=== PATIENT | male | born 1955 | race Hispanic/Latino ===

== ENCOUNTER 2018-02-20 01:53 | Inpatient (IN) | payer OTHER ==
[~2018-02-20] VITALS: Ht 160 cm; Wt 81.6 kg
[~2018-02-20 01:53] MED LIST: LEVOTHYROXINE25 MCG PO; TRIGLIDE160 M1
--- NOTE | 2018-02-20 11:36 | Patient Discharge Instructions ---
Discharge Instructions General Discharge Information You were seen/treated for: Cecal Polyp You had these procedures: Robotic Right Hemicolectomy Watch for these problems: Redness, swelling, or unusual drainage from incisions. Increased pain, nausea, vomiting, excessive diarrhea, or no bowel movements. Fever >101, chest pain, shortness of breath, or calf pain. Call Surgeon to remove: Jessica Do not soak the wound: Yes Daily wet to dry dressings: No No bath, but you may shower: Yes Diet Continue normal diet: Yes Recommended Diet: Low Residue, Regular Activity Full Activity/No Limits: No Activity Self Limited: Yes Pounds, do NOT lift more than: 10 (x 2 weeks) Activity Limited to: Weight bear as tolerated Acute Coronary Syndrome Inclusion Criteria At DC or during hospital stay patient has or had the following: ACS DIAGNOSIS No Discharge Core Measures Meds if any: Prescribed or Continued at Discharge Meds if any: NOT Prescribed or Continued at Discharge Congestive Heart Failure Inclusion Criteria At DC or during hospital stay patient has or had the following: CHF DIAGNOSIS No Discharge Core Measures Meds if any: Prescribed or Continued at Discharge Meds if any: NOT Prescribed or Continued at Discharge Cerebrovascular accident Inclusion Criteria At DC or during hospital stay patient has or had the following: CVA/TIA Diagnosis No Discharge Core Measures Meds if any: Prescribed or Continued at Discharge Meds if any: NOT Prescribed or Continued at Discharge Venous thromboembolism Inclusion Criteria VTE Diagnosis No VTE Type NONE VTE Confirmed by (Test) NONE Discharge Core Measures - Per Current guidelines, there needs to be overlap - treatment for the first 5 days of Warfarin therapy. - If discharged on Warfarin prior to 5 days of - overlap therapy, the patient will need to be - assessed for post discharge needs including - *Post discharge parental anticoagulation - *Warfarin and/or parental anticoagulation education - *Follow up date to check INR post discharge At least 5 days overlap therapy as Inpatient No Meds if any: Prescribed or Continued at Discharge Note: Overlap Therapy is Warfarin and Anticoagulant Meds if any: NOT Prescribed or Continued at Discharge
--- NOTE | 2018-02-20 11:37 | Admission Core Measures ---
Acute Coronary Syndrome (CM) ACS Core Measures Acute Coronary Syndrome Diagnosis No Congestive Heart Failure (NEW) CHF Core Measures Congestive Heart Failure Diagnosis No Cerebrovascular Accident CVA Core Measures CVA/TIA Diagnosis No Venous Thromboembolism VTE Core Shayla (View Protocol) VTE Risk Factors Surgery No Mechanical VTE Prophylaxis d/t N/A MechProphylax Ordered No VTE Pharm Prophylaxis d/t NA PharmProphylax ordered Problem List As ranked by this Provider includes Assessment & Plan 1. Polyp of cecum 2. S/P right hemicolectomy HOME MEDS Home Med List Levothyroxine Sodium 25 MCG TABLET 1 TAB PO DAILY replacement (Reported)
--- NOTE | 2018-02-20 11:38 | Operative Report ---
Operative/Inv Procedure Report Surgery Date: 02/20/18 Name of Procedure: Robotic right colectomy with intracorporeal anastomosis Pre-Operative Diagnosis: Adenoma of the cecum not amenable to endoscopic removal Post-Operative Diagnosis: Adenoma of the cecum not amenable to endoscopic removal Estimated Blood Loss: less than 50ml Surgeon/Lusterer: Chavo Fernandez Jr., DO Anesthesia: general endotracheal tube, block Monitors: Per routine Implants: None Drains: None Specimens: 1. Right colon 2. Additional distal margin Complications: None Condition: Good Operative Indication: This is a 62-year-old gentleman who during colonoscopy sent to have a polyp at the base of the cecum. This polyp was not amenable to colonoscopic removal. Biopsies demonstrated adenoma. Patient was referred for surgical consultation. As this was a premalignant polyp I recommended surgery. He underwent preoperative risk assessment and clearance and then was scheduled for surgery Operative/Procedure Note Note: On the night perforce procedure the patient did a bowel prep at home including oral laxatives and oral antibiotics. 3 hours before his scheduled operation the patient drinks 12 ounces of apple juice per our ERAS protocol. He presented to and in the holding area was premedicated with acetaminophen, Neurontin and Entereg. Patient was taken into the operating room where he received IV experience patient supine position on the operating room table. He underwent induction of general anesthesia and placement of endotracheal tube. A Fink catheter was placed. Next bilateral tap blocks performed by the anesthesia department. After this the patient's arms were tucked and the abdomen was prepped and draped in usual fashion. We gained access to the abdominal cavity using a Veress needle technique. The Veress needle was inserted in the midclavicular line subcostal on the left. Abdomen was insufflated 50 mmHg and then the robotic ports were placed. The ports were placed on the line drawn between the pubic symphysis and the midclavicular line on the left. #1,2 and 4 ports were 8 mm ports. #3 port was a 12 mm port. Laparoscopic expiration the abdominal cavity was performed. There was no obvious pathology the patient was placed in slight Trendelenburg left side down. Small bowel was swept away from the base of the right nasal colon. The omentum was swept over the transverse colon. In the robot was docked. The cecum was grasped and elevated this tented the mesentery next the ileocolic blood vessels as they crossed over the duodenum. Using electrocautery I scored the perineum along the inferior edge of the ileocolic blood vessels. Next I developed a window through this incision into the retroperitoneum and found the avascular space in the rectum perineum. I was able to identify the duodenum through this mesenteric window and I continued to dissect medial to lateral and then inferior to superior until all the lateral attachments of the right colon and the proximal transverse colon were taken down from the retroperitoneum. Next the ileocolic blood vessels were skeletonized and then divided with the robotic vessel sealing device. At this point I took down the white line of Toldt starting at the cecum and working antegrade until the entire right colon and proximal transverse colon were mobilized . I continued dividing the mesentery parallel to the ileocolic blood vessels till I reached the wall of the ileum. Once wall of the ileum was well exposed a robotic stapler was used to divide the bowel. I used a 45 mm white robotic stapler. Next I chose my proximal site of transection. I divided the bowel at about the level of the hepatic flexure with robotic blue 45 mm stapler. 2 firings were required. At this point when I was inspecting the transected colon I did not like the staple line. [place] was too tangential and lastly potentially ischemic to dog ear. So I resected this corner with another firing of the 45 mm blue HANNA stapler. Next this additional distal margin was robotically sutured to the specimen 2-0 Vicryl. The specimen was placed in the right upper quadrant above the liver. The 2 ends of the transected bowel were tacked together with 2-0 Vicryl suture in a [id number] fashion. Enterotomies were made about 6-8 cm from the transected edge of the bowel. These enterotomies were made on the antimesenteric portion of the bowel. Next a robotic HANNA stapler was used to create a common channel. One arm of the stapling device was placed on each limb of the bowel the stapler was closed and fired. I did a second stapling to make sure that the anastomosis was adequately wide. At this point I closed the common enterotomy in 2 layers. The inner layer was closed with a running 2-0 V LOC suture. The outer layer was done with interrupted 2-0 Vicryl sutures placed in a fashion. I inspected the staple line last time from the anterior aspect and it appeared intact. I inspected the posterior suture line which also appeared intact. at this point the specimen bowel was grasped with a locking grasper. The pneumoperitoneum was let down and a 4 cm Pfannenstiel incision was created. Wound protector was placed through this Pfannenstiel. The specimen was extracted through the Pfannenstiel. Specimen was later opened and the back table and the polyp was readily visible in the base of the cecum. At this point the wound protector was removed. The peritoneum at this incision was closed with a running 2-0 Vicryl suture. The fascia was closed transversely with a 0 PDS. Subcutaneous tissues were copiously irrigated here and closed with skin rashad. Immediately one last inspection for hemostasis with the laparoscope. I irrigated out the right gutter and there was some old blood but no evidence of active bleeding and I was satisfied with hemostasis. Ports removed under direct visualization of the laparoscope. All the lap endoscopic ports were closed with subcuticular 4-0 Monocryl and then skin glue. The abdomen was cleansed and dried. A island dressing was placed over the Pfannenstiel incision. The patient was ectopy in the operating room and taken recovery area in good condition and he tolerated the procedure well. At the end this operational needle sponges and Schmidts were accounted for
--- NOTE | 2018-02-20 11:48 | Surgical Discharge Summary ---
Visit Information Visit Dates Admission Date: 02/20/18 History of Present Illness Chief Complaint: Cecal Polyp Medical History Cardiovascular: hyperlipidemia Endocrine: hypothyroidism Other Medical Hx: Vitamin B12 and D Deficiency Isolation History: Standard Surgical History Pertinent Surgical History: colon resection Review of Systems: as per [facility] Hospital Course Course Attending Physician: Chavo Fernandez Jr., DO Primary Care Physician: Enzo Finney MD Hospital Course: This is a 62 yo male with a PMHx of hypothyroidism, hyperlipidemia, and Vitamin B12 and D deficiency who presented electively on 02/20/18 for Robotic Right Hemicolectomy. Patient tolerated the procedure well. Postoperative course was uncomplicated. Diet was advanced in a stepwise fashion as bowel function returned. He was on an ERAS protocol during his hospital stay. By time of discharge patient was ambulating, voiding, tolerating a regular low residue diet , on PO analgesia, and had full return of bowel function. Plan is for the patient to follow up with Dr. Fernandez within 2 weeks for staple removal and postoperative check. Full details of his hospital course, operative report and diagnostic studies can be found in his electronic chart. Complications: None Allergies: Coded Allergies: No Known Allergies (02/10/18) Significant Procedures: Robotic Right Hemicolectomy 02/20/18 Disposition Summary Disposition Principal Diagnosis: Cecal Polyp Additional Diagnosis: 1. Hypothyroidism 2. Hyperlipidemia 3. Vitamin B12 Deficiency 4. Vitamin D Deficiency Discharge Disposition: home or self care Discharge Instructions General Discharge Information Code Status: Full Code Patient's Diet: Regular Low Residue Patient's Activity: Increase as tolerated Follow-Up Instructions/Appts: Call the office for a follow up appointment following discharge from the hospital. Call sooner with any other problems, questions or concerns. Medications at Discharge Discharge Medications: Continue taking these medications: Fenofibrate Nanocrystallized (Triglide) 160 MG TABLET Levothyroxine Sodium (Levothyroxine Sodium) 25 MCG TABLET 1 Tablet ORAL DAILY Copies To: Chavo Fernandez Jr., DO
[2018-02-20 13:45] VITALS: BP 110/80
--- NOTE | 2018-02-20 16:24 | PN- Student ---
Orion Donahueh 02/20/18 1607: Subjective Subjective: POST OP CHECK mild diffuse abdominal pain 5/10, improves with pain medication. Burped once since surgery. No flatus or bowel movements. Straw colored urine in clifton. No nausea, no vomiting. has not been OOB. Has had juice to drink. No calf pain, no chest pain, no shortness of breath. Objective Objective: Vitals: Not recorded I's/O's I's: not recorded O's: 250 clifton Imaging: None Physical Exam: General: no acute distress, alert and oriented to time and place Pulm: clear to auscultation bilaterally cardio: s1,s2 RRR Abdomen: softly distended, positve bowel sounds. Difusely tender to palpation. Small surgical sites are intact. Large dressing is intact with sanguinous discharge. Extremities: calves soft and non tender bilaterally. 2+ dorsalis pedis and posterior tibialis pulses. Alps in place Results Results: Microbiology 02/20 1157 URINE ROUT: Urine Culture - COLB Assessment/Plan Assessment: 62 year old male POD0 S/P robotic right colectomy doing well with expected pain awaiting bowel function. Plan: Clear diet, advance to fulls tomorrow Gabapentin, acetaminophen, oxycodone, and morphine prn for pain Entereg for bowel recovery GI prophylaxis Zofran for nausea Alps and Heparin subQ for DVT prophylaxis OOB Remove clifton tomorrow AM Continue home meds discuss with preceptor Anitha Kebede 02/20/18 4497: Assessment/Plan Assessment: Agree with student assessment/poc. Dressing with moderate sangiunous drainage, appears old, drainage does not appear to be active at this time. Will continue to monitor. Vital signs: BP: 110/80, HR: 58, O2 sat: 95% room air, T: 98.2 Continue ERAS protocol, pt tolerating clear liquid diet with no nausea or emesis. Will likely advance to fulls in am. Ambulation and incentive spirometry encouraged.
[2018-02-20 18:00] VITALS: BP 130/80
[2018-02-20 22:02] VITALS: BP 140/80
[2018-02-21 06:59] VITALS: BP 122/74
--- NOTE | 2018-02-21 07:50 | PN- General Surgery ---
See Addendum Subjective Subjective: Patient reports postop pain which is well controlled. He reports pain with movement. He reports moving his bowels 4 times since surgery, which were loose in nature and states the last 3 were associated with blood and reports straining. He states he is tolerating clears without nausea, vomiting or bleching. He offers no other complaints. Objective Vital Signs and I&Os Vital Signs Date Time Temp Pulse Resp B/P B/P Pulse O2 O2 Flow FiO2 Mean Ox Delivery Rate 02/21 0659 98.5 58 18 122/74 98 Room Air 02/20 2202 97.7 79 20 140/80 97 02/20 1800 96.9 68 20 130/80 96 Room Air 02/20 1345 98.2 58 18 110/80 95 Room Air Intake & Output 02/21 1600 02/21 0800 02/21 0000 02/20 1600 02/20 0800 02/20 0000 Intake Total 400 400 Output Total 600 1400 500 Balance -600 -1000 -100 Intake, IV 300 Intake, Oral 100 400 Number 2 1 Bowel Movements Output, Urine 600 1400 500 Patient 180 lb Weight Physical Exam: Gen - nontoxic, appears uncomfortably in no acute distress Cardiac - S1S2 noted Lungs - CTAB Abd - softly distended, hypoactive bs, incisions with dermaflex in place, no signs of infection, suprapubic dressing c/d/i, appropriately tender to palpation , no rebound or guarding - clifton in place with clear urine Ext - alps in place, no edema or calf tenderness Current Medications: Current Medications Sig/Jeff Start time Last Medication Dose Route Stop Time Status Admin Acetaminophen 1,000 MG TID PRN 02/20 1430 AC PO Acetaminophen 1,000 MG TID 02/20 1400 DC PO Alvimopan 12 MG BID 02/20 2100 AC 02/21 PO 0759 Bupivacaine Liposome 266 MG .STK-MED ONE 02/20 1058 DC INF 02/20 1059 Diphenhydramine HCl 50 MG Q6P PRN 02/20 1200 AC IV Docusate Sodium 100 MG BID 02/20 2100 AC 02/21 PO 0758 Fenofibrate 145 MG DAILY 02/21 0900 AC 02/21 PO 0758 Fentanyl Citrate 100 MCG .STK-MED ONE 02/20 1133 DC IM 02/20 1134 Gabapentin 200 MG Q8 02/20 1400 AC 02/21 PO 0554 Heparin Sodium 5,000 UNIT Q8 02/20 1400 DC 02/21 (Porcine) SC 0553 Lactated Ringer's 1,000 ML Q13H 02/20 1200 DC 02/21 IV 0231 Levothyroxine Sodium 0.025 MG DAILY AC 02/21 0700 AC 02/21 PO 0553 Morphine Sulfate 2 MG Q3P PRN 02/20 1200 AC 02/20 IV 1435 Morphine Sulfate 4 MG Q3P PRN 02/20 1200 AC IV Non-Formulary 0 SEE ADMIN CRITERIA 02/20 1200 CAN Medication ANY Ondansetron HCl 4 MG Q6P PRN 02/20 1430 AC IV Ondansetron HCl 4 MG Q6P PRN 02/20 1200 DC IV Oxycodone HCl 5 MG Q4-6 PRN PRN 02/20 1200 AC PO Oxycodone HCl 10 MG Q4-6 PRN PRN 02/20 1200 AC 02/21 PO 0648 Pantoprazole Sodium 40 MG DAILY 02/21 0900 AC 02/21 IV 0759 Patient Medication 1 ED ONE ONE 02/21 1030 DC Teaching ED 02/21 1031 Polyethylene Glycol 17 GM DAILY 02/21 0900 AC 02/21 PO 0802 Simethicone 80 MG TID 02/20 1400 AC 02/21 PO 0759 Results Last 48 Hours of Labs: Laboratory Tests 02/21 0635 Chemistry Sodium (137 - 145 mmol/L) 138 Potassium (3.5 - 5.1 mmol/L) 4.0 Chloride (98 - 107 mmol/L) 105 Carbon Dioxide (22 - 30 mmol/L) 24 Anion Gap (5 - 16) 9 BUN (9 - 20 mg/dL) 12 Creatinine (0.7 - 1.2 mg/dL) 0.8 Estimated GFR (>60 ml/min) > 60 BUN/Creatinine Ratio (7 - 25 %) 15.0 Hematology CBC w Diff NO MAN DIFF REQ WBC (4.8 - 10.8 /CUMM) 15.1 H RBC (4.70 - 6.10 /CUMM) 4.83 Hgb (14.0 - 18.0 G/DL) 14.6 Hct (42 - 52 %) 43.5 MCV (80.0 - 94.0 FL) 90.1 MCH (27.0 - 31.0 PG) 30.1 MCHC (33.0 - 37.0 G/DL) 33.4 RDW (11.5 - 14.5 %) 13.8 Plt Count (130 - 400 /CUMM) 246 MPV (7.4 - 10.4 FL) 8.0 Gran % (42.2 - 75.2 %) 83.4 H Lymphocytes % (20.5 - 51.1 %) 9.7 L Monocytes % (1.7 - 9.3 %) 6.9 Eosinophils % (0 - 5 %) 0 Basophils % (0.0 - 2.0 %) 0 Absolute Granulocytes (1.4 - 6.5 /CUMM) 12.6 H Absolute Lymphocytes (1.2 - 3.4 /CUMM) 1.5 Absolute Monocytes (0.10 - 0.60 /CUMM) 1.0 H Absolute Eosinophils (0.0 - 0.7 /CUMM) 0 Absolute Basophils (0.0 - 0.2 /CUMM) 0 Assessment/Plan Assessment/Plan 62 M POD 1 s/p robotic right colectomy with intracorporeal anastomosis secondary to cecal adenoma with return of bowel function and hematochezia, likely postoperative from anastomosis Cont clears, d/c IV ERAS protocol Home meds on board Bowel regimen on board DVT ppx - alps, hold hsq Labs reviewed, recheck H&H this afternoon\ D/c clifton Encourage IS, ambulation D/w Dr. Waters Core Measures Venous Thromboembolism VTE Risk Factors Surgery No Mechanical VTE Prophylaxis d/t N/A MechProphylax Ordered No VTE Pharm Prophylaxis d/t NA PharmProphylax ordered
[2018-02-21 08:13] LABS: ABSOLUTE BASOPHIL COUNT 0 /CUMM (0.0-0.2); ABSOLUTE EOSINOPHIL COUNT 0 /CUMM (0.0-0.7); ABSOLUTE GRANULOCYTE CT 12.6 /CUMM (1.4-6.5); ABSOLUTE LYMPH COUNT 1.5 /CUMM (1.2-3.4); BASOPHIL % 0 % (0.0-2.0); EOSINOPHIL % 0 % (0-5); HEMATOCRIT 43.5 % (42-52); MEAN CORPUSCULAR HGB 30.1 PG (27.0-31.0); MEAN CORPUSCULAR HGB CONC 33.4 G/DL (33.0-37.0); MEAN CORPUSCULAR VOLUME 90.1 FL (80.0-94.0); PLATELET COUNT 246 /CUMM (130-400); RBC DISTRIBUTION WIDTH 13.8 % (11.5-14.5); RED BLOOD CELL CT 4.83 /CUMM (4.70-6.10); WHITE BLOOD CELL COUNT 15.1 /CUMM (4.8-10.8)
[2018-02-21 09:47] LABS: GRANULOCYTE % 83.4 % (42.2-75.2)
[2018-02-21 14:39] LABS: ABSOLUTE BASOPHIL COUNT 0 /CUMM (0.0-0.2); ABSOLUTE EOSINOPHIL COUNT 0 /CUMM (0.0-0.7); ABSOLUTE GRANULOCYTE CT 10.6 /CUMM (1.4-6.5); ABSOLUTE LYMPH COUNT 1.3 /CUMM (1.2-3.4); ABSOLUTE MONOCYTE COUNT 0.8 /CUMM (0.10-0.60); BASOPHIL % 0.2 % (0.0-2.0); EOSINOPHIL % 0 % (0-5); GRANULOCYTE % 83.2 % (42.2-75.2); HEMATOCRIT 40.6 % (42-52); MEAN CORPUSCULAR HGB 29.8 PG (27.0-31.0); MEAN CORPUSCULAR HGB CONC 33.5 G/DL (33.0-37.0); MEAN CORPUSCULAR VOLUME 88.8 FL (80.0-94.0); MEAN PLATELET VOLUME 7.2 FL (7.4-10.4); PLATELET COUNT 230 /CUMM (130-400); RBC DISTRIBUTION WIDTH 13.8 % (11.5-14.5); RED BLOOD CELL CT 4.57 /CUMM (4.70-6.10); WHITE BLOOD CELL COUNT 12.7 /CUMM (4.8-10.8)
[2018-02-21 14:50] VITALS: BP 132/88
--- NOTE | 2018-02-21 14:56 | Event Note ---
Event Note Event Note: Called by nurse due to reported "chest pain". The patient reports about 30 minutes of right sided chest discomfort, which seemed to resolve after morphine. He denies shortness of breath. No dizziness. No further episodes of bloody bms. vitals stable EKG - stable appearing right bundle branch block (compared to pre-op ekg) troponin pending follow up cbc pending discussed above with will obtain chest xray called for cardiology consult will f/u troponin
--- NOTE | 2018-02-21 15:55 | RADIOLOGY REPORT ---
EXAMINATION: XR CHEST CLINICAL INFORMATION: Right-sided chest pain. Shoulder discomfort. COMPARISON: None. TECHNIQUE: Portable frontal view of the chest was obtained. FINDINGS: The lungs are fairly well expanded. No focal consolidation, pleural effusion, pulmonary edema, or pneumothorax. No significant mediastinal widening. No acute osseous abnormalities. IMPRESSION: No acute pulmonary pathology demonstrated.
[2018-02-21 21:33] VITALS: BP 110/70
--- NOTE | 2018-02-21 21:52 | Cons- Cardiology ---
General Information and HPI Consulting Request Date of Consult: 02/21/18 Requested By: Chavo Fernandez Jr., DO History of Present Illness: Mr. Zarco is a 62 year old male with history of hyperlipidemia who underwent a colectomy for a colonic adenoma. This morning the patient noted a discomfort located around the right shoulder that is exacerbated by movement of his arm. There is no precordial chest pain and no shortness of breath. He also denies lightheadedness or palpitations. At baseline this is an active person without cardiac symptoms. Allergies/Medications Allergies: Coded Allergies: No Known Allergies (02/10/18) Home Med List: Fenofibrate Nanocrystallized (Triglide) 160 MG TABLET cholesterol (Reported) Levothyroxine Sodium 25 MCG TABLET 1 TAB PO DAILY replacement (Reported) Review of Systems Review of Systems: A review of systems was unremarkable. 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 Home Services at Home: None Smoking Status: Never Smoked Exam & Diagnostic Data Vital Signs and I&O Vital Signs Date Time Temp Pulse Resp B/P B/P Pulse O2 O2 Flow FiO2 Mean Ox Delivery Rate 02/213 98.6 74 18 110/70 95 02/21 1450 98.7 69 20 132/88 96 02/21 0659 98.5 58 18 122/74 98 Room Air 02/20 2202 97.7 79 20 140/80 97 Intake & Output 02/21 1600 02/21 0800 02/21 0000 02/20 1600 02/20 0800 02/20 0000 Intake Total 800 400 400 Output Total 5386 692 0986 500 Balance -750 -600 -1000 -100 Intake, IV 300 Intake, Oral 800 100 400 Number 2 1 Bowel Movements Output, Urine 8025 247 3820 500 Patient 180 lb Weight Physical Exam: General: WD/WN male in NAD; alert and oriented x 3 HEENT: NC/AT, PERRL, EOMI Neck: no JVD, no carotid bruit Heart: RRR w/o murmur Lungs: clear bilaterally Abdomen: soft, mildly tender, +ve bowel sounds Extremities: no edema Assessment/Plan Assessment/Plan * This patient has minimal risk factors for coronary artery disease and very atypical symptoms for myocardial ischemia. His ECG is unchange compared with the pre-operative study although it does show an rsr' pattern in V1 and V2 with slight interventricular conduction delay. There are no ischemic changes. It is reasonable and recommended to obtain an echocardiogram. He is otherwise doing well from a cardiac standpoint. I believe his discomfort is musculoskeletal. Consult Acknowledgment - Thank you for your consult request.
[2018-02-22 05:48] VITALS: BP 122/68
--- NOTE | 2018-02-22 07:54 | PN- General Surgery ---
See Addendum Subjective Subjective: No acute events overnight, no fever no flulike illness, his pain is improving. He had a bloody bowel movement this morning, states it was dark red blood, was not able to quantify how much. He does not feel lightheaded or dizzy. Objective Vital Signs and I&Os Vital Signs Date Time Temp Pulse Resp B/P B/P Pulse O2 O2 Flow FiO2 Mean Ox Delivery Rate 02/22 0548 98.3 72 20 122/68 96 Room Air 02/21 2133 98.6 74 18 110/70 95 02/21 1450 98.7 69 20 132/88 96 Intake & Output 02/22 0800 02/22 0000 02/21 1600 02/21 0800 02/21 0000 02/20 1600 Intake Total 360 100 800 400 400 Output Total 200 6366 523 9438 500 Balance 360 -100 -750 -600 -1000 -100 Intake, IV 300 Intake, Oral 360 100 800 100 400 Number 1 2 1 Bowel Movements Output, Urine 200 3760 817 6545 500 Patient 180 lb Weight Physical Exam: Well-developed well-nourished no apparent distress. HEENT: Atraumatic, extraocular motion intact Neck: Supple, no lymphadenopathy Heart: Regular rate and rhythm Respiratory: No respiratory distress, clear to auscultation Abdomen: Softly distended, incision sites clean dry and intact, suprapubic dressing with small amount of dry serosanguineous staining. Positive bowel sounds. Mild diffuse appropriate abdominal tenderness Extremities: No edema, no calf pain Neuro: Alert and oriented x3 Psych: Mood affect normal, normal memory normal judgment. Skin: Warm and dry, no rash on exposed skin Results Last 48 Hours of Labs: Laboratory Tests 02/21 02/21 1422 0635 Chemistry Sodium (137 - 145 mmol/L) 138 Potassium (3.5 - 5.1 mmol/L) 4.0 Chloride (98 - 107 mmol/L) 105 Carbon Dioxide (22 - 30 mmol/L) 24 Anion Gap (5 - 16) 9 BUN (9 - 20 mg/dL) 12 Creatinine (0.7 - 1.2 mg/dL) 0.8 Estimated GFR (>60 ml/min) > 60 BUN/Creatinine Ratio (7 - 25 %) 15.0 Troponin I (<0.11 ng/ml) < 0.01 Hematology CBC w Diff NO MAN DIFF REQ NO MAN DIFF REQ WBC (4.8 - 10.8 /CUMM) 12.7 H 15.1 H RBC (4.70 - 6.10 /CUMM) 4.57 L 4.83 Hgb (14.0 - 18.0 G/DL) 13.6 L 14.6 Hct (42 - 52 %) 40.6 L 43.5 MCV (80.0 - 94.0 FL) 88.8 90.1 MCH (27.0 - 31.0 PG) 29.8 30.1 MCHC (33.0 - 37.0 G/DL) 33.5 33.4 RDW (11.5 - 14.5 %) 13.8 13.8 Plt Count (130 - 400 /CUMM) 230 246 MPV (7.4 - 10.4 FL) 7.2 L 8.0 Gran % (42.2 - 75.2 %) 83.2 H 83.4 H Lymphocytes % (20.5 - 51.1 %) 10.6 L 9.7 L Monocytes % (1.7 - 9.3 %) 6.0 6.9 Eosinophils % (0 - 5 %) 0 0 Basophils % (0.0 - 2.0 %) 0.2 0 Absolute Granulocytes (1.4 - 6.5 /CUMM) 10.6 H 12.6 H Absolute Lymphocytes (1.2 - 3.4 /CUMM) 1.3 1.5 Absolute Monocytes (0.10 - 0.60 /CUMM) 0.8 H 1.0 H Absolute Eosinophils (0.0 - 0.7 /CUMM) 0 0 Absolute Basophils (0.0 - 0.2 /CUMM) 0 0 Assessment/Plan Assessment/Plan 62 M POD 2 s/p robotic right colectomy with intracorporeal anastomosis secondary to cecal adenoma with hematochezia, likely postoperative from anastomosis Cont clears ERAS protocol Home meds on board Bowel regimen on board DVT ppx - alps, hold hsq due to bloody bowel movements Recheck H&H this morning and chemistries Incentive spirometer Ambulation Hopefully advance diet to low residue today if H&H is stable and bloody bowel movements resolve, may restart heparin at that time as well. Core Measures Venous Thromboembolism VTE Risk Factors Surgery No Mechanical VTE Prophylaxis d/t N/A MechProphylax Ordered No VTE Pharm Prophylaxis d/t NA PharmProphylax ordered
[2018-02-22 09:45] LABS: ABSOLUTE BASOPHIL COUNT 0 /CUMM (0.0-0.2); ABSOLUTE EOSINOPHIL COUNT 0 /CUMM (0.0-0.7); ABSOLUTE GRANULOCYTE CT 10.4 /CUMM (1.4-6.5); ABSOLUTE LYMPH COUNT 1.5 /CUMM (1.2-3.4); ABSOLUTE MONOCYTE COUNT 0.7 /CUMM (0.10-0.60); BASOPHIL % 0.3 % (0.0-2.0); EOSINOPHIL % 0.4 % (0-5); MEAN CORPUSCULAR HGB 29.9 PG (27.0-31.0); MEAN CORPUSCULAR HGB CONC 33.3 G/DL (33.0-37.0); MEAN CORPUSCULAR VOLUME 89.8 FL (80.0-94.0); MEAN PLATELET VOLUME 7.8 FL (7.4-10.4); PLATELET COUNT 221 /CUMM (130-400); RBC DISTRIBUTION WIDTH 14.2 % (11.5-14.5); RED BLOOD CELL CT 4.56 /CUMM (4.70-6.10); WHITE BLOOD CELL COUNT 12.6 /CUMM (4.8-10.8)
[2018-02-22 14:25] VITALS: BP 120/70
[2018-02-22 22:12] VITALS: BP 138/70
[2018-02-23 05:45] VITALS: BP 118/72
--- NOTE | 2018-02-23 08:24 | PN- Student ---
Kemar Donahue 02/23/18 0810: Subjective Subjective: 2/10 pain left side of abdomen. worse with movement. Bloody, black bowel movement 10 pm yesterday, No bm's since. No nausea, no vomiting. Tolerating diet. No chest pain, no shortness of breath, no calf pain. making urine. has been OOB. Objective Objective: Vitals: Temp: 98.6 = Tcurrent, 98.9=Tmax Pulse 70 Respiratory: 20 BP: 118/72 Pulse ox: 95% room air I/0's I: 60 oral 8hrs/ 1280 oral 24hrs O: not recorded 8hrs/ 400 urine 24hours Imaging: None Physical Exam: General: No acute distress, alert and oriented to time and place. Pulm: clear to auscultation bilaterally Cardio: s1,s2,RRR Abdomen: solfty distended, Postive Bowel sounds, tender at epigastric and left side of abdomen. Inscision sites are clean with no drainage and rashad are in place. Extremities: calves soft bilaterally, no redness or edema, 2+ dp/pt pulses Results Results: Laboratory Tests 02/23/18 0627: CBC w Diff Pending, WBC Pending, RBC Pending, Hgb Pending, Hct Pending, MCV Pending, MCH Pending, MCHC Pending, RDW Pending, Plt Count Pending, MPV Pending 02/22/18 0915: Anion Gap 10, Estimated GFR > 60, BUN/Creatinine Ratio 10.0, CBC w Diff NO MAN DIFF REQ, RBC 4.56 L, MCV 89.8, MCH 29.9, MCHC 33.3, RDW 14.2, MPV 7.8, Gran % 82.0 H, Lymphocytes % 11.9 L, Monocytes % 5.4, Eosinophils % 0.4, Basophils % 0.3, Absolute Granulocytes 10.4 H, Absolute Lymphocytes 1.5, Absolute Monocytes 0.7 H, Absolute Eosinophils 0, Absolute Basophils 0 02/21/18 1422: Troponin I < 0.01, CBC w Diff NO MAN DIFF REQ, RBC 4.57 L, MCV 88.8, MCH 29.8, MCHC 33.5, RDW 13.8, MPV 7.2 L, Gran % 83.2 H, Lymphocytes % 10.6 L, Monocytes % 6.0, Eosinophils % 0, Basophils % 0.2, Absolute Granulocytes 10.6 H , Absolute Lymphocytes 1.3, Absolute Monocytes 0.8 H, Absolute Eosinophils 0, Absolute Basophils 0 02/21/18 0635: Anion Gap 9, Estimated GFR > 60, BUN/Creatinine Ratio 15.0, CBC w Diff NO MAN DIFF REQ, RBC 4.83, MCV 90.1, MCH 30.1, MCHC 33.4, RDW 13.8, MPV 8.0, Gran % 83.4 H, Lymphocytes % 9.7 L, Monocytes % 6.9, Eosinophils % 0, Basophils % 0, Absolute Granulocytes 12.6 H, Absolute Lymphocytes 1.5, Absolute Monocytes 1.0 H, Absolute Eosinophils 0, Absolute Basophils 0 Microbiology 02/20 1157 URINE ROUT: Urine Culture - CAN Cancelled: SPECIMEN NOT RECEIVED IN LABORATORY Assessment/Plan Assessment: 62 year old male POD3 s/p right hemicolectomy with expected abdominal pain, cessation of chest pain, and some bloody bowel movements likely from post op bleeding. Plan: Continue diet Continue ERAS protocol Continue home meds Continue ALPS and Heparin for DVT prophylaxis Continue Pain control plan Continue Zofran for nausea prn Continue OOB Plan for discharge Meka Milligan 02/23/18 0948: Assessment/Plan Plan: Agree with above. Pt tolerating diet, having bowel movements. Denies CP/SOB. pain well-controlled abd- soft, incisions clean and dry, no signs of infection After discussing with Dr. Fernandez, will send pt home today with prescription for outpatient echocardiogram. Rec FU with Dr Fernandez in 10 days
--- NOTE | 2018-02-23 08:53 | ECHOCARDIOGRAM REPORT ---
RAJ VIRAMONTES Age: 62 : 1955 Gender: M Exam Date: 02/22/2018 08:20 Exam Location: [place] Ht (in): 63 Wt (lb): 180 BSA: 1.94 BP: 122 / 68 Ordering Physician: Anitha Martin Referring Physician: Anitha Martin Technologist: Yakelin Blancas [facility] Room Number: 224-02 Indications: Rhythm: Sinus Technical Quality: good FINDINGS Left Ventricle Normal left ventricular size, wall thickness and systolic function with no obvious regional wall motion abnormalities. Normal left ventricular diastolic filling pattern for age. The ejection fraction is visually estimated at 55%. Right Ventricle The right ventricle is normal in size and function. Right Atrium The right atrium is normal in size. Left Atrium The left atrium is normal in size. The interatrial septum is intact. Mitral Valve The mitral valve is normal in structure and function. There is trace mitral regurgitation. Aortic Valve Structurally normal aortic valve without significant sclerosis or stenosis. There is no aortic regurgitation. Tricuspid Valve The tricuspid valve is normal in structure and function. There is trace tricuspid regurgitation. Pulmonary artery systolic pressure is normal. Pulmonic Valve Structurally normal pulmonic valve. There is no pulmonic regurgitation. Pericardium Normal pericardium without effusion. No pleural effusion. Great Vessels Normal aortic root dimension. The aortic arch and great vessels are well seen and are normal. CONCLUSIONS 1. Normal EF of 55%. 2. Trace mitral regurgitation. 3. Trace tricuspid regurgitation. Hi Bell M.D. (Electronically Signed) Final Date: 23 February 2018 08:53 MEASUREMENTS (Male / Female) Normal Values 2D ECHO LV Diastolic Diameter PLAX 3.5 cm 4.2 - 5.9 / 3.9 - 5.3 cm LV Systolic Diameter PLAX 2.5 cm 2.1 - 4.0 cm LV Fractional Shortening PLAX 28.6 % 25 - 46 % LV Ejection Fraction 2D Teich 56.1 % IVS Diastolic Thickness 1.2 cm LVPW Diastolic Thickness 1.0 cm LV Relative Wall Thickness 0.6 LVOT Diameter 2.0 cm Aortic Root Diameter 3.2 cm LA Systolic Diameter LX 3.1 cm 3.0 - 4.0 / 2.7 - 3.8 cm LV Ejection Fraction MOD BP 50.0 % >= 55 % LV Diastolic Length 4C 7.2 cm 6.9 - 10.3 cm LV Diastolic Area 4C 27.9 cm LV Diastolic Volume MOD 4C 88.0 cm LV Ejection Fraction MOD 4C 52.3 % LV Stroke Volume MOD 4C 46.0 cm LV Systolic Length 4C 5.6 cm LV Systolic Area 4C 16.5 cm LV Systolic Volume MOD 4C 42.0 cm LV Ejection Fraction MOD 2C 52.2 % LV Diastolic Volume 4C AL 91.3 cm 85 - 139 / 69 - 109 cm LV Systolic Volume 4C AL 41.4 cm LV Ejection Fraction 4C AL 54.6 % LV Stroke Volume 4C AL 49.9 cm LV Ejection Fraction 2C AL 52.5 % LA Volume 48.0 cm 18 - 58 / 22 - 52 cm DOPPLER AV Peak Velocity 155.0 cm/s AV Peak Gradient 9.6 mmHg LVOT Peak Velocity 95.3 cm/s LVOT Peak Gradient 3.6 mmHg AV Area Cont Eq pk 1.9 cm Mitral E Point Velocity 48.9 cm/s Mitral A Point Velocity 56.3 cm/s Mitral E to A Ratio 0.9 MV Deceleration Time 433.0 ms TR Peak Velocity 254.0 cm/s TR Peak Gradient 25.8 mmHg PV Peak Velocity 141.0 cm/s PV Peak Gradient 8.0 mmHg LV E' Lateral Velocity 14.0 cm/s Mitral E to LV E' Lateral Ratio 3.5 LV E' Septal Velocity 9.0 cm/s Mitral E to LV E' Septal Ratio 5.5
[2018-02-23 09:37] LABS: ABSOLUTE BASOPHIL COUNT 0 /CUMM (0.0-0.2); ABSOLUTE EOSINOPHIL COUNT 0.1 /CUMM (0.0-0.7); ABSOLUTE LYMPH COUNT 1.7 /CUMM (1.2-3.4); ABSOLUTE MONOCYTE COUNT 0.9 /CUMM (0.10-0.60); BASOPHIL % 0.2 % (0.0-2.0); EOSINOPHIL % 0.8 % (0-5); GRANULOCYTE % 77.3 % (42.2-75.2); MEAN CORPUSCULAR HGB 29.9 PG (27.0-31.0); MEAN CORPUSCULAR HGB CONC 33.5 G/DL (33.0-37.0); MEAN CORPUSCULAR VOLUME 89.1 FL (80.0-94.0); MEAN PLATELET VOLUME 8.2 FL (7.4-10.4); PLATELET COUNT 222 /CUMM (130-400); RBC DISTRIBUTION WIDTH 14.1 % (11.5-14.5); RED BLOOD CELL CT 4.27 /CUMM (4.70-6.10); WHITE BLOOD CELL COUNT 11.6 /CUMM (4.8-10.8)
[2018-02-23] MEDS ORDERED: TYLENOL EXTRA500 M2 PO (09:54)
[2018-02-23] MEDS ORDERED: ROXICODONE5 M1 PO (09:54)
== END 2018-02-23 12:55 | DRG 331 ==
LOC: SDA 01:53 → 2NA 01:53 → SDA 07:00 → ENRESERV 12:24 → ENTRNSPT 13:04 → EDTRNSPT 13:13 → EDTRNSPTSTS 13:13 → 2NA 13:20 → CMPTRNSPT 13:29 → ENPENDDIS 02-23 11:20 → 2NA 02-23 12:55
PROVIDERS: Physician Assistant; Physician Assistant Surgical
PROC: 0DTH4ZZ Resection of Cecum, Percutaneous Endoscopic Approach (ICD-10-PCS; principal; 2018-02-20)
PROC: 0DTK0ZZ Resection of Ascending Colon, Open Approach (ICD-10-PCS; 2018-02-20)
PROC: 8E0W4CZ Robotic Assisted Procedure of Trunk Region, Percutaneous Endoscopic Approach (ICD-10-PCS; 2018-02-20)
DX: D12.0 Benign neoplasm of cecum (principal); E78.5 Hyperlipidemia, unspecified; K21.9 Gastro-esophageal reflux disease without esophagitis; I10 Essential (primary) hypertension; E03.9 Hypothyroidism, unspecified; E53.8 Deficiency of other specified B group vitamins; E55.9 Vitamin D deficiency, unspecified; R07.9 Chest pain, unspecified
CPT/HCPCS: 2NASP; 36415; 36592; 71045; 82436; 87086; 93005; 93010; 93306; C9290; J0131; J0690; J1200; J1644; J2405; J3490; J7120